=== PATIENT | male | born 1955 | race Caucasian/White ===

== ENCOUNTER → 2023-01-21 | Outpatient (CLI) | payer OTHER | END | disposition home or self-care (01) | LOC: RAH 10:36 | PROVIDERS: ATTEND Internal Medicine | DX: R11.0 Nausea (principal); R14.0 Abdominal distension (gaseous); R10.10 Upper abdominal pain, unspecified | CPT/HCPCS: 78264; A9541 ==

== ENCOUNTER 2024-07-21 23:05 | Emergency (ER) | payer OTHER ==
[~2024-07-21] VITALS: Ht 175.3 cm; Wt 120.7 kg
[2024-07-21 23:30] LABS: BASOPHILS # (AUTO) 0.03 K/uL (0.00-0.20); BASOPHILS % (AUTO) 0.4 % (0.0-5.0); EOSINOPHILS # (AUTO) 0.29 K/uL (0.00-0.70); EOSINOPHILS % (AUTO) 4.2 % (0.0-8.0); HEMATOCRIT 38.8 % (42-54); IMMATURE GRANULOCYTE ABSOLUTE 0.02 K/uL (0-1); LYMPHOCYTES # (AUTO) 2.1 K/uL (1.0-4.8); LYMPHOCYTES % (AUTO) 30.3 % (21.0-51.0); MEAN CORPUSCULAR HEMOGLOBIN 31.9 pg (27.0-33.0); MEAN CORPUSCULAR HGB CONC 35.6 g/dL (32.0-36.0); MEAN CORPUSCULAR VOLUME 89.6 fL (79-99); MONOCYTES # (AUTO) 0.7 K/uL (0.1-1.0); NEUTROPHILS # (AUTO) 3.8 K/uL (1.8-7.7); NEUTROPHILS % (AUTO) 54.8 % (40.0-77.0); PLATELET COUNT (AUTO) 144 K/uL (130-400); RED BLOOD CELL COUNT(AUTO) 4.33 MIL/uL (4.50-6.20); RED CELL DISTRIBUTION WIDTH 13.3 % (11.0-15.5); WHITE BLOOD COUNT (AUTO) 6.9 K/uL (4.8-10.8)
[2024-07-21 23:39] LABS: CREATININE 1.1 mg/dL (0.5-1.3); POTASSIUM 4.3 mmol/L (3.5-5.1)
--- NOTE | 2024-07-21 23:43 | HMCIMG ---
CHEST 1VW HISTORY: Chest pain COMPARISON: 01/01/2008 FINDINGS: A frontal projection of the chest was obtained. No acute pulmonary infiltrates is seen. Poststernotomy changes are seen. The heart is enlarged. Degenerative changes of the thoracolumbar spine are present. Degenerative changes are seen. Prominent interstitial markings are seen. No evidence of aortic calcification is seen. IMPRESSION: 1. No acute pulmonary infiltrate is seen.
[2024-07-21 23:44] LABS: MAGNESIUM 2.1 mg/dL (1.80-2.40)
[2024-07-22 00:11] LABS: B-TYPE NATRIURETIC PEPTIDE 59 pg/mL (0-100)
[2024-07-22] MEDS ORDERED: AZIT250T9 PO (01:39)
--- NOTE | 2024-07-22 01:39 | ERN ---
General Chief Complaint: Chest Pain Stated Complaint: C/O CP WITH SOB Time Seen by MD: 23:11 Time Seen by Midlevel: 23:11 Source: patient History of Present Illness Initial Comments The patient is a 69-year-old morbidly obese male presenting to the emergency department for evaluation of chest pain and shortness of breath that started earlier today. The patient states he was getting off with a gas station when his symptoms started. They resolved on their own but given his previous history of a CABG, hypertension, and type 2 diabetes he decided to report to the ER for further evaluation. Does report a persistent cough for the last six months that he attributes to his lisinopril. He had mentioned it to his orthodontist assistant but the plan was to further observe. On arrival he does report feeling significantly improved. Past Medical History Past Medical History: Heart Disease, Hypertension Past Surgical History: CABG Surgical History Other: CARDIAC STENTS ROS Dictation CONSTITUTIONAL: Negative except for HPI HEAD/FACE: Negative except for HPI EENT: Negative except for HPI RESPIRATORY: Negative except for HPI GASTROINTESTINAL/ABDOMINAL: Negative except for HPI GENITOURINARY: Negative except for HPI MUSCULOSKELETAL: Negative except for HPI INTEGUMENTARY: Negative except for HPI NEUROLOGICAL/PSYCH: Negative except for HPI HEMATOLOGIC/LYMPHATIC: Negative except for HPI All Systems Negative, Except as noted above. 13 point review of systems assessed and all negative except for above. Physical Exam Physical Exam Dictation Vital Signs reviewed General Appearance: Alert, oriented x 3, no acute distress, well developed, nourished. Head and Face: non-traumatic. Eyes: PERRL, pink conjunctivas, eyelid no trauma, anterior chamber with arcus senilis. Ears: Pinnas intact and no signs of trauma or erythema ear canals clear and no discharge TM no erythema Nose: No discharge, no bleeding. Oropharynx: Mouth normal, tongue pink, pharynx clear,no erythema, tonsils no exudates, no abscesses noted, mucous membrane moist Neck: Supple, non-tender, no thyromegaly, no masses, no JVD, no bruits Breast:Deferred Chest:No tenderness, no crepitus, no paradoxical movement, no retractions Lungs:Clear, well-ventilated, symmetric, no rales, no wheezing, no rhonchi, no stridor, good breath sounds bilaterally Heart: Regular rate, regular rhythm, no murmur, no gallops Vascular: no peripheral edema, Abdomen: Soft, positive bowel sounds, nondistended, no guarding, nontender, no rebound, no masses no hepatomegaly, no splenomegaly, no Severino's sign, no hernias. Rectal: Deferred Genital: Deferred Neurological: Normal speech, motor function intact, sensory function intact Musculoskeletal: Neck nontender, full range of motion, back nontender, full range of motion, Extremities: nontender, full range of motion Skin: Color pink, dry, no turgor, no rash, no lacerations, no abrasions, no co ntusions. Lymphatic: Deferred Results Laboratory and Microbiology Lab and Micro Result Laboratory Tests Test 07/21/24 23:21 07/22/24 00:26 White Blood Count 6.9 K/uL (4.8-10.8) Red Blood Count 4.33 MIL/uL (4.50-6.20) L Hemoglobin 13.8 g/dL (14.0-18.0) L Hematocrit 38.8 % (42-54) L Mean Corpuscular Volume 89.6 fL (79-99) Mean Corpuscular Hemoglobin 31.9 pg (27.0-33.0) Mean Corpuscular Hemoglobin Concent 35.6 g/dL (32.0-36.0) Red Cell Distribution Width 13.3 % (11.0-15.5) Platelet Count 144 K/uL (130-400) Mean Platelet Volume 11.0 fL (7.5-10.5) H Immature Granulocyte % (Auto) 0.3 % (0-1) Neutrophils (%) (Auto) 54.8 % (40.0-77.0) Lymphocytes (%) (Auto) 30.3 % (21.0-51.0) Monocytes (%) (Auto) 10.0 % (3.0-13.0) Eosinophils (%) (Auto) 4.2 % (0.0-8.0) Basophils (%) (Auto) 0.4 % (0.0-5.0) Neutrophils # (Auto) 3.8 K/uL (1.8-7.7) Lymphocytes # (Auto) 2.1 K/uL (1.0-4.8) Monocytes # (Auto) 0.7 K/uL (0.1-1.0) Eosinophils # (Auto) 0.29 K/uL (0.00-0.70) Basophils # (Auto) 0.03 K/uL (0.00-0.20) Absolute Immature Granulocyte (auto 0.02 K/uL (0-1) Nucleated Red Blood Cells 0.0 % (0.0-0.19) Sodium Level 141 mmol/L (136-145) Potassium Level 4.3 mmol/L (3.5-5.1) Chloride Level 105 mmol/L (101-111) Carbon Dioxide Level 30 mmol/L (21-32) Blood Urea Nitrogen 19 mg/dL (7-18) H Creatinine 1.1 mg/dL (0.5-1.3) Glomerular Filtration Rate Calc 73 mL/min (>90) Random Glucose 112 mg/dL (70-105) H Total Calcium 8.8 mg/dL (8.5-10.1) Magnesium Level 2.10 mg/dL (1.80-2.40) Total Creatine Kinase 184 U/L (21-232) Troponin I High Sensitivity 8 ng/L (4-75) 9 ng/L (4-75) B-Type Natriuretic Peptide 59 pg/mL (0-100) Labs Reviewed?: Yes MDM MDM: Differential diagnosis: ACS, pneumonia, dehydration, electrolyte abnormality There are no social concerns with this patient. Prescription drug management Prescriptions will include: Azithromycin Medical management and examination interpretation discussions were had by me with other qualified healthcare professionals as indicated for the patient's care. ED Course Orders Procedure Category Date Status Time 12 Lead Ekg Tracing- EKG 07/21/24 Logged Technical 23:10 B-Type Natriuretic LAB 07/21/24 Complete Peptide 23:10 Cbc With Differential LAB 07/21/24 Complete 23:10 Basic Metabolic Panel LAB 07/21/24 Complete 23:10 Drug Screen Urine LAB 07/21/24 Logged 23:10 Magnesium LAB 07/21/24 Complete 23:10 Troponin I High LAB 07/21/24 Complete Sensitivity 23:10 Chest 1vw RAD 07/21/24 Resulted 23:10 Creatine Kinase, Total LAB 07/21/24 Complete 23:10 Troponin I High LAB 07/22/24 Complete Sensitivity 00:07 Vital Signs Date Time Temp Pulse Resp B/P (MAP) Pulse Ox O2 Delivery O2 Flow Rate FiO2 07/21/24 23:29 98.4 56 18 144/68 98 Room Air* 0 21 07/21/24 23:06 98.2 61 20 135/54 97 Room Air HEART Score Response (Comments) Value History: Low suspicion (0) 0 EKG: Normal 0 Age: > 65yrs (+2) 2 Risk Factors: 1-2 risk factors (+1) 1 Initial Troponin: Normal limit (0) 0 HEART Score Risk: Low Risk for MACE (1-3) Total 3 DX & DISP Disposition: Discharge Departure Impression: Primary Impression: Non-cardiac chest pain Condition: Stable Scripts Azithromycin (Azithromycin) 250 Mg Tablet 1 TAB PO AD for 5 Days, #6 TAB 0 Refills 2 the first day followed by 1 for days 2-5 Prov: NITZA GARCIA 07/22/24 Additional Instructions: Your blood work today is unremarkable. Your two sets of cardiac enzymes are negative. Your EKG is normal. Your chest x-ray shows some pulmonary congestion which could indicate an early pneumonia. I will go ahead and start you on oral antibiotics for outpatient management. Please follow up with your primary care doctor in 2-3 days for repeat evaluation. Return to the ER if you develop any new or worsening symptoms. Schedule an appointment with your orthodontist assistant as soon as possible. Referrals: SHABBIR GARCIA (PCP) Time of Disposition: 01:38 I have reviewed the case, and I agree with, Diagnosis and Plan I performed the substantive portion of the visit. I have reviewed and personally made and approve the management plan that is documented in the note by myself or the PANCHITO. I acknowledge for responsibility for the patient's management plan. NITZA GARCIA July 22, 2024 01:39
[2024-07-22 01:47] VITALS: BP 136/54; PULSE 60; RESP 20; TEMP 98.3; O2SAT 98
--- NOTE | 2024-07-22 06:24 | EKG ---
[facility] Test Date: 2024-07-21 Test Time: 23:08:47 Pat Name: HALLEY DUARTE Department: ED Room: Gender: Male Customer Account Specialist: [phone] Requested By: NITZA GARCIA Order Number: [id number] Reading MD: Measurements Intervals [place] Rate: 63 P: 45 OR: 170 QRS: -20 QRSD: 110 T: 62 QT: 457 QTc: 468 Interpretive Statements Sinus rhythm No previous ECG available for comparison Please click the below link to view image of tracing.
== END 2024-07-22 01:58 | disposition home or self-care (01) ==
LOC: EDH 23:05
DX: R07.89 Other chest pain (principal); E66.01 Morbid (severe) obesity due to excess calories; I11.9 Hypertensive heart disease without heart failure; Z95.1 Presence of aortocoronary bypass graft; Z95.5 Presence of coronary angioplasty implant and graft; Z68.39 Body mass index [BMI] 39.0-39.9, adult
CPT/HCPCS: 36415; 71045; 80048; 82550; 83735; 83880; 84484; 85025; 93005; 99285

== ENCOUNTER 2025-01-29 23:03 | Inpatient (IN) | payer MEDICARE, OTHER ==
[~2025-01-29] VITALS: Ht 175.3 cm; Wt 116.8 kg
--- NOTE | 2025-01-29 23:19 | ERN ---
General Chief Complaint: Chest Pain Stated Complaint: PALPITATIONS, CP, SOB Time Seen by MD: 23:06 History of Present Illness Initial Comments 69-year-old male history of coronary artery disease, multiple sentence, atrial fibrillation with a Watchman placement here for evaluation of acute onset chest pain. Patient states that he has had chest pain 15 minutes just prior to arrival. Pain radiates to the left arm. No fever no cough no shortness a breath. No vomiting or diarrhea. No abdominal pain. Allergies: Coded Allergies: morphine (Unverified Allergy, Unknown, 01/29/25) Home Meds Active Scripts Azithromycin (Azithromycin) 250 Mg Tablet, 1 TAB PO AD for 5 Days, #6 TAB 0 Refills 2 the first day followed by 1 for days 2-5 Prov:NITZA GARCIA PAC 07/22/24 Past Medical History Past Medical History: Anxiety, Heart Disease, Hypertension Past Surgical History: CABG Surgical History Other: CARDIAC STENTS , WATCHMAN Cardiovascular: (+) chest pain Physical Exam Physical Exam Dictation GENERAL APPEARANCE NAD, activity normal for age, well developed/ well nourished, no cyanosis, pallor, or diaphoresis. EYES lids/conjunctiva normal. EARS/NOSE/THROAT Mucous membranes moist, nares normal, lips/teeth normal uvula midline without oral pharyngeal erythema, exudate or swelling TMs normal bilaterally. No lymphangitis/lymphedema. HEAD/NECK normocephalic atraumatic, no facial trauma, neck is supple. RESPIRATORY respiratory effort normal, speaks in full sentences, no tripod position, no accessory muscle use. Lungs clear to auscultation without rhonchi, wheezes, rales CARDIAC Regular rate and rhythm, no edema. ABDOMINAL Soft, ND/NT. No evidence of fluid wave. No pulsatile masses on exam, rebound tenderness, Severino sign or pain over Mcburney's point. MUSCLES/EXTREMITIES No abnormal range of motion, no swelling. SKIN Warm, pink and dry. No rashes, dermatoses, petechiae or lesions. NEUROLOGICAL Speech is clear and appropriate. Normal level of consciousness. Gait and coordination are normal. 5/5 strength in all extremities. PSYCH Normal mood and affect. Judgement/competence is appropriate Results Laboratory and Microbiology Lab and Micro Result Laboratory Tests Test 01/29/25 23:14 01/30/25 00:32 White Blood Count 7.3 K/uL (4.8-10.8) Red Blood Count 4.44 MIL/uL (4.50-6.20) L Hemoglobin 14.1 g/dL (14.0-18.0) Hematocrit 39.1 % (42-54) L Mean Corpuscular Volume 88.1 fL (79-99) Mean Corpuscular Hemoglobin 31.8 pg (27.0-33.0) Mean Corpuscular Hemoglobin Concent 36.1 g/dL (32.0-36.0) H Red Cell Distribution Width 13.2 % (11.0-15.5) Platelet Count 143 K/uL (130-400) Mean Platelet Volume 11.4 fL (7.5-10.5) H Immature Granulocyte % (Auto) 0.4 % (0-1) Neutrophils (%) (Auto) 58.7 % (40.0-77.0) Lymphocytes (%) (Auto) 28.1 % (21.0-51.0) Monocytes (%) (Auto) 9.3 % (3.0-13.0) Eosinophils (%) (Auto) 3.0 % (0.0-8.0) Basophils (%) (Auto) 0.5 % (0.0-5.0) Neutrophils # (Auto) 4.3 K/uL (1.8-7.7) Lymphocytes # (Auto) 2.1 K/uL (1.0-4.8) Monocytes # (Auto) 0.7 K/uL (0.1-1.0) Eosinophils # (Auto) 0.22 K/uL (0.00-0.70) Basophils # (Auto) 0.04 K/uL (0.00-0.20) Absolute Immature Granulocyte (auto 0.03 K/uL (0-1) Nucleated Red Blood Cells 0.0 % (0.0-0.19) Red Blood Cell Morphology See comments Sodium Level 140 mmol/L (136-145) Potassium Level 3.5 mmol/L (3.5-5.1) Chloride Level 103 mmol/L (101-111) Carbon Dioxide Level 28 mmol/L (21-32) Blood Urea Nitrogen 15 mg/dL (7-18) Creatinine 1.0 mg/dL (0.5-1.3) Glomerular Filtration Rate Calc 82 mL/min (>90) Random Glucose 122 mg/dL (70-105) H Total Calcium 8.2 mg/dL (8.5-10.1) L Total Creatine Kinase 274 U/L (21-232) #H Troponin I High Sensitivity 15 ng/L (4-75) 15 ng/L (4-75) MDM 69-year-old male here for evaluation of palpitations and chest pain. Labs are reassuring however given the patient's medical history of coronary artery disease, watchman placement, atrial fibrillation and the fact that he is still symptomatic with palpitations, I will admit the patient to the hospitalist for further monitoring. Throughout his stay here he had has not had a heart rate above 125. ED Course Orders Procedure Category Date Status Time Vital Signs Per CPOE 01/29/25 Transmitted Routine 23:05 Chest 1vw RAD 01/29/25 Resulted 23:05 12 Lead Ekg Tracing- EKG 01/29/25 Logged Technical 23:05 Oxygen By Nc/Pulse Ox CPOE 01/29/25 Transmitted 23:05 Maintain Iv CPOE 01/29/25 Transmitted 23:05 Iv Insertion CPOE 01/29/25 Transmitted 23:05 Cardiac Monitoring CPOE 01/29/25 Transmitted 23:05 Pulse Oximetry With CPOE 01/29/25 Transmitted Vs And Prn 23:05 Cbc With Differential LAB 01/29/25 Complete 23:05 Activity: Br W/Brp CPOE 01/29/25 Transmitted With Assist 23:05 Creatine Kinase, Total LAB 01/29/25 Complete 23:05 Troponin I High LAB 01/29/25 Complete Sensitivity 23:05 Urinalysis Profile LAB 01/29/25 Logged 23:05 Basic Metabolic Panel LAB 01/29/25 Complete 23:05 0.9% Nacl 500ml PHA 01/30/25 In Process Iv.Soln (Ns 500ml 00:00 Lorazepam 2 Mg PHA 01/30/25 Complete (Ativan) 00:00 Troponin I High LAB 01/30/25 Complete Sensitivity 00:17 Current Medications Medications (Trade) Dose Ordered Sig/Bharat Route PRN Reason Start Time Stop Time Status Last Admin Dose Admin Lorazepam (AtiVAN) 1 mg ONCE ONCE IVP 01/30/25 00:00 01/30/25 00:07 DC 01/30/25 00:30 Sodium Chloride 500 ml @ 0 mls/hr Q0M IV 01/30/25 00:00 1/6/26 00:00 01/30/25 00:30 Vital Signs Date Time Temp Pulse Resp B/P (MAP) Pulse Ox O2 Delivery O2 Flow Rate FiO2 01/30/25 00:45 98.2 99 16 127/68 95 Room Air* 0 21 01/29/25 23:14 98.2 110 20 158/88 99 Room Air* 0 21 01/29/25 23:05 97.9 121 24 144/66 96 Room Air HEART Score Response (Comments) Value History: High suspicion (+2) 2 EKG: Normal 0 Age: > 65yrs (+2) 2 Risk Factors: 3+ risk factors (+2) 2 Initial Troponin: Normal limit (0) 0 HEART Score Risk: Mod Risk for MACE (4-6) Total 6 DX & DISP Disposition: Inpatient Departure Impression: Primary Impression: Non-cardiac chest pain Condition: Stable Referrals: SHABBIR GARCIA (PCP) JENNA PIERRE MD Jan 29, 2025 23:19
[2025-01-29 23:28] LABS: IMMATURE GRANULOCYTE ABSOLUTE 0.03 K/uL (0-1); NUCLEATED RED BLOOD CELLS 0.0 % (0.0-0.19); PLATELET COUNT (AUTO) 143 K/uL (130-400); RED BLOOD CELL COUNT(AUTO) 4.44 MIL/uL (4.50-6.20); RED CELL DISTRIBUTION WIDTH 13.2 % (11.0-15.5); WHITE BLOOD COUNT (AUTO) 7.3 K/uL (4.8-10.8)
[2025-01-29 23:36] LABS: CREATININE 1.0 mg/dL (0.5-1.3); GLOMERULAR FILTR. RATE CALC 82.0 mL/min (>90); GLUCOSE,RANDOM 122.0 mg/dL (70-105); SODIUM SERUM 140.0 mmol/L (136-145); UREA NITROGEN, BLOOD 15.0 mg/dL (7-18)
[2025-01-29 23:41] LABS: CREATINE KINASE, TOTAL 274.0 U/L (21-232)
[2025-01-30] MEDS: 0.9% NACL 500ML IV.SOLN 500 ML IV SCH (00:30)
--- NOTE | 2025-01-30 00:36 | HMCIMG ---
EXAM: CR Chest, 1 View. CLINICAL HISTORY: CHEST PAIN COMPARISON: None provided. FINDINGS: Postmedian sternotomy and coronary artery bypass graft status. Borderline cardiomegaly. Prominence of bronchovascular markings. Blunting of the right costophrenic angle suggests underlying minimal effusion. No aggressive appearing osseous lesion seen. IMPRESSION: Borderline cardiomegaly with possibility of mild interstitial pulmonary edema and minimal right pleural effusion. /[place]
[2025-01-30 01:59] LABS: APPEARANCE,URINE CLEAR (CLEAR); GLUCOSE, URINE (UA) NEGATIVE (NEGATIVE); LEUKOCYTE ESTERASE ,URINE NEGATIVE Leu/uL (NEGATIVE); NITRATE,URINE NEGATIVE (NEGATIVE); OCCULT BLOOD,URINE NEGATIVE (NEGATIVE)
[2025-01-30 02:05] LABS: ADD UA MICROSCOPIC NO
--- NOTE | 2025-01-30 02:51 | HP ---
[facility] HISTORY [facility] PHYSICAL Date of Service: Jan 30, 2025 Time of Service: 02:17 PCP: Nedra Cramer HISTORY OF PRESENT ILLNESS: This is a 69 year old male with past medical history of morbid obesity,anxiety disorder,CHF, Hypertension,atrial fibrillation ,coronary artery disease with multiple cardiac stents and CABG x5 with a Watchman's device placement who presents tot he ED for evaluation of chest pain.Patient reports he just had dinner last night ,he had potato,beans and casserole and went home sitting in his computer after a few minutes of sitting down he developed sudden onset of left sided chest pain which radiates to his left arm associated with nausea and shortness of breath ,followed by a heart palpitations as per patient. Patient states chest pain is described as chest pressure. Upon ER arrival vital signs temperature 97.9, pulse 121, respiration 24, blood pressure 144/66 saturation 96% on room air. Seen and examined patient in the ER awake alert and coherent appears comfortable. Patient denies chest pain at this time, palpitation, cough, shortness of breaths, abdominal pain and vomiting. Latest vital signs temperature 98.2, heart rate 99, blood pressure 127/68 saturation 95% on room air. Labs: CBC unremarkable. Random glucose 122, total calcium 8.2, total CK 274 troponin 15 and 15. Urinalysis is normal. EKG not available at this time. X-ray result revealed borderline cardiomegaly with possibility of mild interstitial pulmonary edema and minimal right pleural effusion. While in the ER patient received NS 500 bolus, lorazepam 1 mg IV. We will admit patient for further medical management. REVIEW OF SYSTEMS CONSTITUTIONAL: Denies fevers, chills, or night sweats. No unintentional weight loss reported. NEUROLOGICAL: Denies headache, amaurosis fugax, motor weakness, sensory deficit, vertigo/spinning sensation, gait abnormalities, or tremors. ENT: No hearing loss, otalgia, otorrhea, rhinitis, rhinorrhea, hoarseness, or sore throat. CARDIOVASCULAR: Complains of Exertional angina, dyspnea on exertion, orthopnea, paroxysmal nocturnal dyspnea. Denies life-threatening arrhythmias, claudication. PULMONARY: Complains of shortness of breaths Denies cough, phlegm/sputum, hemoptysis, pleuritic chest pain. SLEEP: Denies morning headaches, daytime somnolence or napping. Denies difficulty falling asleep, staying asleep, waking from sleep. Denies knowledge of snoring. GASTROINTESTINAL: Complains of nausea Denies any type of dysphagia to either liquids or solids. Denies vomiting, pyrosis, early satiety, abdominal pain, diarrhea, constipation, or changes in stool consistency or caliber. Denies coffee-ground emesis, hematemesis, hematochezia, or melanotic stools. GENITOURINARY: Denies frequency, urgency, nocturia, hematuria or incontinence (Storage/Irritative symptoms.) Low urinary stream, straining to void, urinary intermittency or hesitancy, splitting of the voiding stream, terminal dribbling. ENDOCRINOLOGIC: Denies polyuria, polydipsia, polyphagia or heat/cold intolerances. HEMATOLOGIC: Denies thrombophilia/previous clots, or coagulopathy/bleeding disorders. ONCOLOGIC: Denies personal history of malignancy. DERMATOLOGIC: Denies rashes or pruritus. PSYCHIATRIC: Denies any suicidal or homicidal ideation. Denies hallucinations. PAST MEDICAL HISTORY: [ morbid obesity,anxiety disorder,CHF, Hypertension,atrial fibrillation ,coronary artery disease ] PAST SURGICAL HISTORY: [ with multiple cardiac stents and CABG x5 with a Watchman's device placement ] PAST SOCIAL HISTORY: [ Patient lives with . Patient denies cigarette and recreational drug use. Patient admits to drinking one beer per week.] FAMILY HISTORY: [Noncontributory ] Coded Allergies: morphine (Unverified Allergy, Unknown, 01/29/25) PHYSICAL EXAM GENERAL APPEARANCE: The patient is awake, alert, and oriented, in no acute cardiopulmonary distress. NEUROLOGICAL: Cranial nerves II-XII grossly intact. Motor is 5/5 in bilateral upper and lower extremities proximal to distal. No sensory deficits. HEENT: Face is symmetric. Pupils are equal and reactive. Extraocular movements are intact. NECK: Supple. No JVD. No thyromegaly. No submental, submandibular, pre- /postauricular, occipital or supraclavicular lymphadenopathy. CHEST: Normal chest expansion. No Telemetry. LUNGS: Absence of any rales, rhonchi or any wheezing. CARDIOVASCULAR: Irregular. S1 and S2 normal. No appreciable rubs, murmurs or gallops. ABDOMEN: Soft, nontender, and nondistended. There is no rebound, voluntary guarding, or rigidity. : Deferred. No Looney. EXTREMITIES: . Trace edema to bilateral lower extremities SKIN: No skin breakdown. Vital Sign (Last 24 Hours) 01/30/25 00:45 Temp 98.2 Pulse 99 Resp 16 B/P (MAP) 127/68 Pulse Ox 95 O2 Delivery Room Air* O2 Flow Rate 0 FiO2 21 LABS: Laboratory: Test 01/30/25 00:36 01/30/25 00:32 01/29/25 23:14 Range/Units Urine Color LIGHT-YELLOW YELLOW Urine Appearance CLEAR CLEAR Urine pH 7.0 5.0-8.0 Urine Specific [place] 1.005 1.001-1.031 Urine Protein NEGATIVE NEGATIVE mg/dL Urine Glucose (UA) NEGATIVE NEGATIVE mg/dL Urine Ketones NEGATIVE NEGATIVE mg/dL Urine Occult Blood NEGATIVE NEGATIVE Urine Nitrate NEGATIVE NEGATIVE Urine Bilirubin NEGATIVE NEGATIVE mg/dL Urine Urobilinogen 0.2 0.2-1.0 mg/dL Urine Leukocyte Esterase NEGATIVE NEGATIVE Caren/uL Troponin I High Sensitivity 15 4-75 ng/L White Blood Count 7.3 4.8-10.8 K/uL Red Blood Count 4.44 L 4.50-6.20 MIL/uL Hemoglobin 14.1 14.0-18.0 g/dL Hematocrit 39.1 L 42-54 % Mean Corpuscular Volume 88.1 79-99 fL Mean Corpuscular Hemoglobin 31.8 27.0-33.0 pg Mean Corpuscular Hemoglobin Concent 36.1 H 32.0-36.0 g/dL Red Cell Distribution Width 13.2 11.0-15.5 % Platelet Count 143 130-400 K/uL Mean Platelet Volume 11.4 H 7.5-10.5 fL Immature Granulocyte % (Auto) 0.4 0-1 % Neutrophils (%) (Auto) 58.7 40.0-77.0 % Lymphocytes (%) (Auto) 28.1 21.0-51.0 % Monocytes (%) (Auto) 9.3 3.0-13.0 % Eosinophils (%) (Auto) 3.0 0.0-8.0 % Basophils (%) (Auto) 0.5 0.0-5.0 % Neutrophils # (Auto) 4.3 1.8-7.7 K/uL Lymphocytes # (Auto) 2.1 1.0-4.8 K/uL Monocytes # (Auto) 0.7 0.1-1.0 K/uL Eosinophils # (Auto) 0.22 0.00-0.70 K/uL Basophils # (Auto) 0.04 0.00-0.20 K/uL Absolute Immature Granulocyte (auto 0.03 0-1 K/uL Nucleated Red Blood Cells 0.0 0.0-0.19 % Red Blood Cell Morphology See comments Sodium Level 140 136-145 mmol/L Potassium Level 3.5 3.5-5.1 mmol/L Chloride Level 103 101-111 mmol/L Carbon Dioxide Level 28 21-32 mmol/L Blood Urea Nitrogen 15 7-18 mg/dL Creatinine 1.0 0.5-1.3 mg/dL Glomerular Filtration Rate Calc 82 >90 mL/min Random Glucose 122 H 70-105 mg/dL Total Calcium 8.2 L 8.5-10.1 mg/dL Total Creatine Kinase 274 #H 21-232 U/L Current Medications Medications (Trade) Dose Ordered Sig/Bharat Route PRN Reason Start Time Stop Time Status Last Admin Dose Admin Sodium Chloride 500 ml @ 0 mls/hr Q0M IV 01/30/25 00:00 03/01/25 00:00 01/30/25 00:30 500 MLS/HR DIAGNOSTICS / RADIOLOGY: [ ] ASSESSMENT: Unstable angina POA Persistent atrial fibrillation POA Mildly Elevated CK POA Hypertension POA Coronary arterial disease with multiple cardiac stents and CABG x5 POA Congestive heart failure POA Morbid obesity POA Anxiety disorder POA History of Watchman's device placement POA PLAN: We will admit patient in medical telemetry We will start on heart healthy diet We will start on home dose Aspirin 81 mg po daily and Plavix 75 mg po daily We will start on famotidine 20 mg p.o. daily for GI prophylaxis We will replace electrolytes as needed per protocol We will add prn medication for fever,pain,cough , nausea and vomiting We will reconcile home meds once medlist available We will trend troponin We will request for echocardiogram We will seek cardiology consultation We will request labs in am Further orders to follow depending on above results Case discussed with attending physician and came up with above treatment and plan of care. ADVANCED CARE PLANNING 1. Which of the following were discussed? Hospice Care - No Therapeutic options - Yes Advance Directives - No Other discussions - 2. Discussed with who? Patient 3. Voluntary nature of this service was explained to the patient? Yes 4. Amount of time spent - __25 min 5. Reviewed by Physician? (if this service was performed by NPP) Yes VIMAL TYLER [employer] ENGINEERING CONSULTANT Jan 30, 2025 02:51
[2025-01-30] MEDS ORDERED: NITROGLYCERIN 0.4 MG SL TAB SL PRN (03:00)
--- NOTE | 2025-01-30 04:52 | NUR ---
report given to thiago gutiérrez
[2025-01-30 05:05] VITALS: BP 128/66; PULSE 90; RESP 20; TEMP 98.5; O2SAT 98
--- NOTE | 2025-01-30 05:05 | NUR ---
ADMIT PT ADMITTED TO ROOM 322, AAOX4. DENIES OF ANY CP AT THIS TIME. BREATHING WITH EASE ON RA. ADMISSION CARE DONE. ADMISSION V/S MONITORED, STABLE. ADMISSION ASSESSMENT DONE, PLEASE REFER TO CHART. PLACED COMFORTABLY IN BED WITH HOB ELEVATED. PLACED ON TELE BOX # [id number], AFIB AT 90 BPM HR. ADMISSION DATA BASE COMPLETED. ORIENTED TO ROOM AND UNIT. IN FOR MORE CARE AND MANAGEMENT.
[2025-01-30 05:14] LABS: IMMATURE GRANULOCYTE ABSOLUTE 0.02 K/uL (0-1); NUCLEATED RED BLOOD CELLS 0.0 % (0.0-0.19); PLATELET COUNT (AUTO) 128 K/uL (130-400); RED BLOOD CELL COUNT(AUTO) 4.25 MIL/uL (4.50-6.20); RED CELL DISTRIBUTION WIDTH 13.2 % (11.0-15.5); WHITE BLOOD COUNT (AUTO) 5.5 K/uL (4.8-10.8)
[2025-01-30 05:38] LABS: ASPARTATE AMINOTRANSFERASE 33.0 U/L (10-37); CREATININE 0.9 mg/dL (0.5-1.3); GLOMERULAR FILTR. RATE CALC 93.0 mL/min (>90); GLUCOSE,RANDOM 115.0 mg/dL (70-105); LDL DIRECT 87.0 mg/dL (0-99); SODIUM SERUM 143.0 mmol/L (136-145); TOTAL PROTEIN, SERUM 5.8 g/dL (6.0-8.3); UREA NITROGEN, BLOOD 14.0 mg/dL (7-18)
[2025-01-30 08:00] VITALS: BP 114/64; PULSE 85; RESP 19; TEMP 97.6; O2SAT 98
[2025-01-30] MEDS: FAMOTIDINE 20MG TAB PO SCH (09:26)
[2025-01-30] MEDS: ASPIRIN 81 MG EC TAB PO SCH (09:26)
[2025-01-30 11:30] VITALS: BP 112/60; PULSE 90; RESP 18; TEMP 98.1
--- NOTE | 2025-01-30 14:56 | EKG ---
[facility] Test Date: 2025-01-29 Test Time: 23:00:24 Pat Name: HALLEY DUARTE [facility] Room: 322 1 Gender: M Insurance Account Executive: [id number] : 1955 Requested By: JENNA PIERRE Order Number: [id number] Reading MD: Jaime Ron Measurements Intervals [place] Rate: 120 P: 0 NM: 0 QRS: -12 QRSD: 91 T: 97 QT: 362 QTc: 511 Interpretive Statements Atrial fibrillation Prolonged QT interval Compared to ECG 07/21/2024 23:08:47 Prolonged QT interval now present Sinus rhythm no longer present Electronically Signed On 01-31-2025 13:08:00 [employer] B [employer] by Jaime Ron Please click the below link to view image of tracing.
[2025-01-30 16:00] VITALS: BP 116/63; PULSE 73; RESP 19; TEMP 97.8
[2025-01-30 20:05] VITALS: O2SAT 96
--- NOTE | 2025-01-30 20:05 | NUR ---
MEDS SHIFT ASSESSMENT DONE, PLEASE REFER TO CHART. DUE MEDS ADMINISTERED, TOLERATED WELL. KEPT RESTED AND COMFORTABLE IN BED. CALL LIGHT WITHIN REACH. INSTRUCTED TO BE NPO POST MN FOR ELISCAN IN AM. PT VERBALIZES UNDERSTANDING.
[2025-01-30 21:29] VITALS: BP 137/69; PULSE 70; RESP 21; TEMP 98.2
--- NOTE | 2025-01-30 23:01 | HMCSR ---
APPROVED REPORT EXAM: Two-dimensional and M-mode echocardiogram with Doppler and color Doppler. INDICATION ICD: Chest Pain 2D Dimensions RVDd 5.0 cm LVEF(%) 44.5 (>50%) LVED Vol(simp.) 96.0 mL IVSd 1.4 (0.7-1.1cm) FS(%) 22 % LVES Vol(simp.) 56.0 mL LVDd 5.2 (3.8-5.6cm) LA (2D) 5.1 (1.6-4.0cm) LVEF(%, simp.) 41 % PWd 1.2 (0.7-1.1cm) Ao Root(2D) 3.2 (2.0-3.7cm) LA ESV INDEX (BP) 40.45 mL/m2 IVSs 1.7 cm LVOT diam 2.2 (1.8-2.4cm) LVDs 4.0 (2.5-4.0cm) PWs 1.7 cm Deformation Strain Apical 4 -6.0 % Apical 2 -4.8 % Apical 3 -8.1 % Global Strain -6.3 % M-Mode Dimensions EPSS 0.8 cm LA (MM) 5.7 (1.6-4.0cm) Ao Root(MM) 3.4 (2.0-3.7cm) Aortic Valve AoV Vmax 1.2 m/s Ao Peak GR 5.5 mmHg LVOT Vmax 0.8 m/s AoV VTI 0.2 m Ao Mean GR 3.7 mmHg LVOT VTI 0.15 m CORDELL (VMAX) 2.49 cm2 Al P1/2T 1381 ms CORDELL (VTI) 2.8 cm2 Mitral Valve MV E Vmax 89.3 cm/s DECEL Time 125 ms MV A Vmax 26.0 cm/s P 1/2 T 41 ms E/A ratio 3.4 MVA (PHT) 5.4 cm2 TDI E/E' Medial 17.2 E/E' Lateral 23.9 Medial E' Peak V 5.18 cm/s Lateral E' Peak V 3.74 cm/s Pulmonary Valve PV Vmax 1.1 m/s PV Mean GR 2.6 mmHg PV Peak GR 5.1 mmHg Tricuspid Valve TR Vmax 2.7 m/s RAP (EST) 8 mmHg RVSP 39.1 mmHg TR Peak GR 31.1 mmHg Left Ventricle The left ventricle is normal size. There is global hypokinesis of the left ventricle. Mild concentric left ventricular hypertrophy. Left ventricle systolic function is moderately depressed, estimated LVEF is 40-45% Stage III diastolic dysfunction. Right Ventricle The right ventricle is dilated. The right ventricular systolic function is normal. Atria The left atrium is mildly dilated, 40 mL/m. The right atrium is dilated. Aortic Valve Aortic valve is trileaflet. Leaflets are mildly thickened and calcified. Mild aortic regurgitation. There is no aortic valvular stenosis. Mitral Valve The mitral valve is normal in structure. Trace mitral regurgitation. There is no mitral valve stenosis. Tricuspid Valve The tricuspid valve is normal in structure. Mild tricuspid regurgitation. RVSP is 31 mmHg. Pulmonic Valve Pulmonic valve is not well visualized. Great Vessels The aortic root is normal in size. IVC is not well visualized. Pericardium There is no pericardial effusion. Other Information Quality : Adequate Conclusion The left atrium is mildly dilated, 40 mL/m. The right atrium is dilated. The right ventricle is dilated. Mild concentric left ventricular hypertrophy. There is global hypokinesis of the left ventricle. Left ventricle systolic function is moderately depressed, estimated LVEF is 40-45% Stage III diastolic dysfunction. Mild aortic regurgitation. Trace mitral regurgitation. Mild tricuspid regurgitation. RVSP is 31 mmHg. There is no pericardial effusion.
[2025-01-31 00:58] VITALS: BP 130/58; PULSE 69; RESP 20; TEMP 97.7
[2025-01-31 04:49] VITALS: BP 103/52; PULSE 61; RESP 18; TEMP 97.5
[2025-01-31 06:33] LABS: NUCLEATED RED BLOOD CELLS 0.0 % (0.0-0.19); PLATELET COUNT (AUTO) 122.0 K/uL (130-400); RED BLOOD CELL COUNT(AUTO) 4.64 MIL/uL (4.50-6.20); RED CELL DISTRIBUTION WIDTH 13.2 % (11.0-15.5); WHITE BLOOD COUNT (AUTO) 6.2 K/uL (4.8-10.8)
[2025-01-31 06:45] LABS: CREATININE 1.0 mg/dL (0.5-1.3); GLOMERULAR FILTR. RATE CALC 82.0 mL/min (>90); GLUCOSE,RANDOM 101.0 mg/dL (70-105); SODIUM SERUM 143.0 mmol/L (136-145); UREA NITROGEN, BLOOD 17.0 mg/dL (7-18)
[2025-01-31 08:00] VITALS: O2SAT 96
[2025-01-31] MEDS: REGADENOSON 0.4 MG/5 ML PF SYG IVP ONE (08:03)
[2025-01-31 08:59] VITALS: BP 128/58; PULSE 93; RESP 18; TEMP 98.5
--- NOTE | 2025-01-31 10:55 | NUR ---
DCP:HOME Pt currently lives at home with his . Pt does have a cane at home that he uses to ambulate at times. Pt denies any DME, home health, or provider services. Pt is able to complete ADLs independently. PCP is Dr Shaoib Sneed and uses the [place] or [facility] for any RX needs. At DC pt will want to go home and family can assist with transportation.
[2025-01-31 11:21] VITALS: BP 136/79; PULSE 76; RESP 18; TEMP 98.2
[2025-01-31 11:33] LABS: % IRON SATURATION 34.6 % (30-44); IRON, SERUM 119.0 mcg/dL (65-175)
[2025-01-31 15:30] VITALS: BP 110/82; PULSE 71; RESP 18; TEMP 98
--- NOTE | 2025-01-31 15:46 | NUR ---
PATIENT LEFT AMA. PATIENT WAS ADVISED THAT THE LEXISCAN STRESS TEST RESULTS WERE STILL PENDING AND THAT DR. FAJARDO WOULD LIKE HIM TO STAY UNTIL THOSE RESULTS WERE RECEIVED. PATIENT DECLINED TO STAY AND ALSO DECLINED TO SIGN THE AMA FORM. BOTH PERIPHERAL IVS AND TELEMETRY BOX WERE REMOVED. PATIENT DID AGREE TO FOLLOW UP WITH DR. FAJARDO IN-OFFICE AND TO RETURN TO THE EMERGENCY ROOM IF HIS SYMPTOMS RETURN. PATIENT WALKED OUT.
--- NOTE | 2025-01-31 16:25 | DS ---
Discharge Summary Hospital Course Summary: Patient information: Name: Bradley Duarte Date of : 1955 Admission date: 01/30/2025 Attending physician: Dr. Cesar Springer Admitting diagnosis: Unstable angina POA Persistent atrial fibrillation POA Mildly Elevated CK POA Hypertension POA Coronary arterial disease with multiple cardiac stents and CABG x5 POA Congestive heart failure POA Morbid obesity POA Anxiety disorder POA History of Watchman's device placement POA Course in hospital: This is a 69 year old male with past medical history of morbid obesity,anxiety disorder,CHF, Hypertension,atrial fibrillation ,coronary artery disease with multiple cardiac stents and CABG x5 with a Watchman's device placement who presents tot he ED for evaluation of chest pain.Patient reports he just had dinner last night ,he had potato,beans and casserole and went home sitting in his computer after a few minutes of sitting down he developed sudden onset of left sided chest pain which radiates to his left arm associated with nausea and shortness of breath ,followed by a heart palpitations as per patient. Patient states chest pain is described as chest pressure. Upon ER arrival vital signs temperature 97.9, pulse 121, respiration 24, blood pressure 144/66 saturation 96% on room air. Seen and examined patient in the ER awake alert and coherent appears comfortable. Patient denies chest pain at this time, palpitation, cough, shortness of breaths, abdominal pain and vomiting. Latest vital signs temperature 98.2, heart rate 99, blood pressure 127/68 saturation 95% on room air. Labs: CBC unremarkable. Random glucose 122, total calcium 8.2, total CK 274 troponin 15 and 15. Urinalysis is normal. EKG not available at this time. X-ray result revealed borderline cardiomegaly with possibility of mild interstitial pulmonary edema and minimal right pleural effusion. While in the ER patient received NS 500 bolus, lorazepam 1 mg IV. The patient is admitted in the hospital for further management. Dr. Anna (cardiology) was consulted and he recommended lexiscan, he changed metoprolol succinate to metoprolol tartrate 25mg PO Q6H and heparin 5000 unit SQ. On 01/31/2025, he complained of cramps in her legs which started after the placement of stent 4 months back, he underwent lexiscan today, his vitals are in the normal range,his labs are normal except for platelet 122. He said that he wanted to go home because he has some work to do and he will follow with Dr. Anna (food services director). We wanted to send the patient after cardiac clearance from Dr. Anna. So we asked and he said that he will review the result of lexiscan and then clear him depending on the result. But they patient said that he can't wait until the results of lexiscan and cardiac clearance and wanted to leave AMA. We explained the risks and benefits of leaving against medical evidence such as worsening of current medical condition including or causing . He verbalized understanding but he refused to sign out against medical advice form. So the nurse and charge nurse signed the AMA form. He left AMA. Derrick Builder(s): Dr. Anna (cardiology) was consulted and he recommended lexiscan, he changed metoprolol succinate to metoprolol tartrate 25mg PO Q6H and heparin 5000 unit SQ. Procedure(s): [place] [address] [address] IMAGING REPORT Signed PATIENT: BRADLEY DUARTE MR#: [id number] : 1955 SEX: M AGE: 69 LOCATION: [facility] ORDER 05 STATUS: [facility] REPORT#: [id number] SERVICE 04 REASON: CHEST PAIN ORDERING PHYSICIAN: JENNA PIERRE MD PROCEDURE: CXR1VW - CHEST 1VW EXAM: CR Chest, 1 View. CLINICAL HISTORY: CHEST PAIN COMPARISON: None provided. FINDINGS: Postmedian sternotomy and coronary artery bypass graft status. Borderline cardiomegaly. Prominence of bronchovascular markings. Blunting of the right costophrenic angle suggests underlying minimal effusion. No aggressive appearing osseous lesion seen. IMPRESSION: Borderline cardiomegaly with possibility of mild interstitial pulmonary edema and minimal right pleural effusion. /[place] DICTATED BY: TYSON BOONE Jr., MD DATE: 01/30/25134 ELECTRONICALLY SIGNED BY: TYSON BOONE Jr., MD DATE: 01/30/25134 [place] [id number] [id number] IMAGING REPORT Signed PATIENT: BRADLEY DUARTE MR#: [id number] : 1955 SEX: M AGE: 69 LOCATION: [facility] ORDER 0303 STATUS: ADM IN REPORT#: [id number] SERVICE REASON: chest pain ORDERING PHYSICIAN: VIMAL TYLER PROCEDURE: ECHO CMP - ECHO 2-D COMPLETE APPROVED REPORT EXAM: Two-dimensional and M-mode echocardiogram with Doppler and color Doppler. INDICATION ICD: Chest Pain 2D Dimensions RVDd 5.0 cm LVEF(%) 44.5 (>50%) LVED Vol(simp.) 96.0 mL IVSd 1.4 (0.7-1.1cm) FS(%) 22 % LVES Vol(simp.) 56.0 mL LVDd 5.2 (3.8-5.6cm) LA (2D) 5.1 (1.6-4.0cm) LVEF(%, simp.) 41 % PWd 1.2 (0.7-1.1cm) Ao Root(2D) 3.2 (2.0-3.7cm) LA ESV INDEX (BP) 40.45 mL/m2 IVSs 1.7 cm LVOT diam 2.2 (1.8-2.4cm) LVDs 4.0 (2.5-4.0cm) PWs 1.7 cm Deformation Strain Apical 4 -6.0 % Apical 2 -4.8 % Apical 3 -8.1 % Global Strain -6.3 % M-Mode Dimensions EPSS 0.8 cm LA (MM) 5.7 (1.6-4.0cm) Ao Root(MM) 3.4 (2.0-3.7cm) Aortic Valve AoV Vmax 1.2 m/s Ao Peak GR 5.5 mmHg LVOT Vmax 0.8 m/s AoV VTI 0.2 m Ao Mean GR 3.7 mmHg LVOT VTI 0.15 m CORDELL (VMAX) 2.49 cm2 Al P1/2T 1381 ms CORDELL (VTI) 2.8 cm2 Mitral Valve MV E Vmax 89.3 cm/s DECEL Time 125 ms MV A Vmax 26.0 cm/s P 1/2 T 41 ms E/A ratio 3.4 MVA (PHT) 5.4 cm2 TDI E/E' Medial 17.2 E/E' Lateral 23.9 Medial E' Peak V 5.18 cm/s Lateral E' Peak V 3.74 cm/s Pulmonary Valve PV Vmax 1.1 m/s PV Mean GR 2.6 mmHg PV Peak GR 5.1 mmHg Tricuspid Valve TR Vmax 2.7 m/s RAP (EST) 8 mmHg RVSP 39.1 mmHg TR Peak GR 31.1 mmHg Left Ventricle The left ventricle is normal size. There is global hypokinesis of the left ventricle. Mild concentric left ventricular hypertrophy. Left ventricle systolic function is moderately depressed, estimated LVEF is 40-45% Stage III diastolic dysfunction. Right Ventricle The right ventricle is dilated. The right ventricular systolic function is normal. Atria The left atrium is mildly dilated, 40 mL/m. The right atrium is dilated. Aortic Valve Aortic valve is trileaflet. Leaflets are mildly thickened and calcified. Mild aortic regurgitation. There is no aortic valvular stenosis. Mitral Valve The mitral valve is normal in structure. Trace mitral regurgitation. There is no mitral valve stenosis. Tricuspid Valve The tricuspid valve is normal in structure. Mild tricuspid regurgitation. RVSP is 31 mmHg. Pulmonic Valve Pulmonic valve is not well visualized. Great Vessels The aortic root is normal in size. IVC is not well visualized. Pericardium There is no pericardial effusion. Other Information Quality : Adequate Conclusion The left atrium is mildly dilated, 40 mL/m. The right atrium is dilated. The right ventricle is dilated. Mild concentric left ventricular hypertrophy. There is global hypokinesis of the left ventricle. Left ventricle systolic function is moderately depressed, estimated LVEF is 40- 45% Stage III diastolic dysfunction. Mild aortic regurgitation. Trace mitral regurgitation. Mild tricuspid regurgitation. RVSP is 31 mmHg. There is no pericardial effusion. DICTATED BY: HERNÁN QUIROZ MD DATE: 01/30/25 1138 ELECTRONICALLY SIGNED BY: HERNÁN QUIROZ MD DATE: 01/30/25 2905 Assessment/Plan: DISCHARGE DIAGNOSIS: Chest pain POA Persistent atrial fibrillation POA Mildly Elevated CK POA Low platelets Hypertension POA Congestive heart failure POA Coronary arterial disease with multiple cardiac stents and CABG x5 POA Morbid obesity POA Anxiety disorder POA History of Watchman's device placement POA ASSESSMENT/PLAN: Chest pain POA He complained of chest pain at the time of admission. Troponin levels are 15>15>15>14>15. Dr. Anna (cardiology) was consulted and he recommended lexiscan, he changed metoprolol succinate to metoprolol tartrate 25mg PO Q6H and heparin 5000 unit SQ. He is on heparin, aspirin and plavix. He underwent Lexiscan today. He said that he wanted to go home because he has some work to do and he will follow with Dr. Anna (food services director). We wanted to send the patient after cardiac clearance from Dr. Anna. So we asked and he said that he will review the result of lexiscan and then clear him depending on the result. But they patient said that he can't wait until the results of lexiscan and cardiac clearance and wanted to leave AMA. We explained the risks and benefits of leaving against medical evidence such as worsening of current medical condition including or causing . He verbalized understanding but he refused to sign out against medical advice form. So the nurse and charge nurse signed the AMA form. He left AMA. Also advised to follow up with Dr. Anna. Persistent atrial fibrillation POA He is not having any symptoms today. Today his pulse is 71. He is on aspirin and plavix. Mildly Elevated CK POA His CK is 274. Low platelets His platelet levels are 143>128>122. Advised to repeat his labs as an outpatient. Hypertension POA Today his blood pressure is 110/82. He is on furosemide, metoprolol, losartan. Congestive heart failure POA His BNP is 120. His echocardiogram showed that LVEF is 40 to 45% and stage 3 diastolic dys function. He is on furosemide, metoprolol, losartan. Discharge Instructions: PATIENT LEFT AGAINST MEDICAL ADVICE: Patient did not want to continue any treatment at this time and is refusing to stay and complete evaluation and disposition. The patient is fully aware of all risks and benefits of leaving against medical advice. The risks include worsening of current medical condition including or causing . The patient verbalized understanding and signed out against medical advice. Discharge date: 01/31/2025 Discharge instructions: 1) Follow up with primary care physician within 2 to 3 days after discharge. 2) Follow up with Dr. Anna (cardiology) within 1 to 2 weeks after discharge. 3) Continue all medications as prescribed. Do not discontinue or change doses without consulting your PCP. 4) Gradually resume normal activities as tolerated. 5) Continue a balanced diet. 6) Seek immediate medical attention if you experience chest pain, SOB, or severe headache. Discharge to: Left AMA Condition on discharge: Stable Home Medications: Reported Medications Aspirin (Aspirin) 81 Mg Tab.chew, 1 TAB PO DAILY for 30 Days, #30 TAB 0 Refills 01/30/25 Metoprolol Succinate (Metoprolol Succinate) 25 Mg Tab.er.24h, 1 TAB PO DAILY 01/30/25 Furosemide (Furosemide) 20 Mg Tablet, 1 TAB PO BID 01/30/25 Losartan Potassium (Losartan Potassium) 25 Mg Tablet, 1 TAB PO DAILY 01/30/25 Clopidogrel Bisulfate (Clopidogrel) 75 Mg Tablet, 1 TAB PO DAILY 01/30/25 Discontinued Scripts Azithromycin (Azithromycin) 250 Mg Tablet, 1 TAB PO AD for 5 Days, #6 TAB 0 Refills 2 the first day followed by 1 for days 2-5 Prov:NITZA GARCIA 07/22/24 Time spent arranging discharge: 1-30 minutes ATTESTATION BY PHYSICIAN I have seen and examined the patient. I reviewed the documentation, medical decision making, and treatment plan as noted by the resident physician above. I agree with the findings and plan of care. CESAR SPRINGER MD, AKSHAY MD Jan 31, 2025 16:25
--- NOTE | 2025-01-31 23:26 | CONS ---
REASON FOR CONSULTATION: To evaluate chest pain. HISTORY OF PRESENT ILLNESS: The patient is a 69-year-old gentleman who is actually well known to me. He has a history of ischemic cardiomyopathy and Watchman device. He is on aspirin and Plavix. He has underlying peripheral vascular disease, and recent interventions in his legs. He was doing okay except he had a sudden bout of chest pain that lasted about 5 or 10 minutes and then he had palpitations. He came into the hospital. He was noticed to be in AFib with mildly rapid rate. His cardiac enzymes and tests have all been negative. He denies any excessive type chest pain or shortness of breath. REVIEW OF SYSTEMS: GENERAL: No history of weight loss or weight gain. LUNGS: No history of cough or sputum. CARDIOVASCULAR: As above. HOME MEDICATIONS: Include aspirin and Plavix. His other medications are as listed in the chart. ALLERGIES: No known drug allergies. SOCIAL HISTORY: Denies smoking, alcohol or drugs. FAMILY HISTORY: Noncontributory. PHYSICAL EXAMINATION: GENERAL: A 69-year-old male, alert and oriented x3. No pallor, no cyanosis, no jaundice, no lymphadenopathy, no pitting edema VITAL SIGNS: His pulse is 70, blood pressure is 120s/70s. HEENT: Normocephalic, atraumatic. Pupils are equal, reactive to light. NECK: Supple. No thyromegaly. No carotid bruits. No masses. LUNGS: Mostly clear to percussion and auscultation. CARDIOVASCULAR: Peripheral pulses are diminished. No groin bruit, no abdominal bruit, no carotid bruit, no JVD. S1 and S2 heard. No S3, no S4, no murmurs, no rubs, no other adventitious sounds. ABDOMEN: Benign. CENTRAL NERVOUS SYSTEM: Nonfocal exam. EXTREMITIES: No pitting edema. FINAL IMPRESSION: * Chest pain in a patient who has established coronary artery disease. * History of atrial fibrillation with Watchman device, presently controlled ventricular rate. * History of hypertension and hyperlipidemia. * Peripheral vascular disease. RECOMMENDATIONS: * We will continue dual-antiplatelet medications. * I will start him on DVT prophylaxis. * Full dose anticoagulation is not needed as the patient has Watchman device. * A 2D equivalent Lexiscan has been ordered. We will await the results of the same and further recommendations based on the results of the above. TID: [id number] RECEIPT: [id number]
--- NOTE | 2025-02-02 11:38 | EKG ---
[facility] Test Date: 2025-01-30 Test Time: 10:31:43 Pat Name: HALLEY DUARTE Department: [facility] Room: 322 1 Gender: M Workday Director: Lucian : 1955 Requested By: ELYSIA FAJARDO Order Number: [id number] Reading MD: Layla Abbott Measurements Intervals [place] Rate: 88 P: 0 MO: 0 QRS: -14 QRSD: 90 T: 72 QT: 388 QTc: 469 Interpretive Statements Atrial fibrillation with premature ventricular or aberrantly conducted complexes Cannot rule out Inferior infarct , age undetermined Compared to ECG 01/29/2025 23:00:24 Ventricular premature complex(es) now present Myocardial infarct finding now present Prolonged QT interval no longer present Electronically Signed On 02-02-2025 12:45:44 BOX STRAPPER by Layla Abbott Please click the below link to view image of tracing.
== END 2025-01-31 15:50 | disposition left against medical advice (07) | DRG 303 ==
LOC: EDH 23:03 → EDHIP 01-30 02:51 → 3DH 01-30 04:52
PROVIDERS: ADMIT Hospitalist; ATTEND Hospitalist
PROC: 4A02XM4 Measurement of Cardiac Total Activity, External Approach (ICD-10-PCS; principal; 2025-01-31)
PROC: 3E073KZ Introduction of Other Diagnostic Substance into Coronary Artery, Percutaneous Approach (ICD-10-PCS; 2025-01-31)
DX: I25.110 Atherosclerotic heart disease of native coronary artery with unstable angina pectoris (principal); I11.0 Hypertensive heart disease with heart failure; E66.01 Morbid (severe) obesity due to excess calories; Z79.02 Long term (current) use of antithrombotics/antiplatelets; I73.9 Peripheral vascular disease, unspecified; I48.19 Other persistent atrial fibrillation; F41.9 Anxiety disorder, unspecified; I25.5 Ischemic cardiomyopathy; Z53.29 Procedure and treatment not carried out because of patient's decision for other reasons; Z68.38 Body mass index [BMI] 38.0-38.9, adult; Z79.82 Long term (current) use of aspirin; Z95.1 Presence of aortocoronary bypass graft; Z95.5 Presence of coronary angioplasty implant and graft
CPT/HCPCS: 36415; 71045; 78452; 80048; 80053; 80061; 81003; 82550; 83036; 83540; 83550; 83735; 83880; 84484; 85025; 85027; 85651; 93005; 93017; 93306; 93356; 99285; A9500; G0378; J1644; J2060; J2785; J7040